=== PATIENT | male | born 1955 | race Caucasian/White ===

== ENCOUNTER 2018-01-16 10:17 | Outpatient (REF) | payer BC, SELFPAY ==
[2018-01-16 22:29] LABS: Anion Gap 11.8 mmol/L (3-11); BUN 15 mg/dL (7-18); CO2 26.2 mmol/L (21.0-32.0); CREATININE 0.89 mg/dL (0.70-1.30); Calcium 8.7 mg/dL (8.5-10.1); Chloride 104 mmol/L (98-107); Cholesterol 176 mg/dL (50-200); Glucose 88 mg/dL (70-100); HDL Cholesterol 54 mg/dL (40-60); LDL CHOLESTEROL 93 mg/dL (<100); Sodium 142 mmol/L (136-145); TSH (W/Ref FT4) 8.34 uIU/mL (0.358-3.74); Triglyceride 201 mg/dL (30-150)
[2018-01-16 23:19] LABS: FREE T4 0.92 ng/dL (0.76-1.46)
== END 2018-01-16 10:37 ==
LOC: NCHCN 10:17
PROVIDERS: PCP Family Medicine; Visit Provider Internal Medicine
DX: I10 Essential (primary) hypertension (principal); M54.5 Low back pain; E03.9 Hypothyroidism, unspecified
CPT/HCPCS: 80048; 80061; 83721; 84439; 84443

== ENCOUNTER 2018-04-10 11:24 | Outpatient (REF) | payer BC, SELFPAY ==
[2018-04-10 22:46] LABS: TSH 10.09 uIU/mL (0.358-3.74)
== END 2018-04-10 11:44 ==
LOC: NCHCN 11:24
PROVIDERS: PCP Family Medicine; Visit Provider Internal Medicine
DX: E03.9 Hypothyroidism, unspecified (principal)
CPT/HCPCS: 84443

== ENCOUNTER → 2023-11-21 00:16 | Outpatient (CLI) | payer MEDICARE, SELFPAY ==
--- NOTE | 2023-11-21 | DI.NM_ITS ---
APPROVED REPORT Exam: Pharmacologic Patient Location: Out-Patient Room/Bed: Stress Nurse: Sruthi Ramsay RN and Moose Blakely RN Ordering Provider:OMER PALAFOX, Contact Number: [phone] BMI: 22.46 Baseline Rhythm: Sinus Rhythm. Comment: Occasional PAC's; Rare PVC. Indications: Other Dyspnea; Cardiac Arrhythmia Unspecified. Medical History Medical History: Back Pain; Chronic Pain; Hyperlipidemia; Hypertension; Hypothyroidism; Former Smoker . Cardiac Medications: Amlodipine; Aspirin; Cyclobenzaprine; Hydrocodone with APAP; Levothyroxine; Emma nopril; Omeprazole; Simvastatin; Tamsulosin; Finasteride. Allergies: Penicillins; Sulfa Drugs. Cardiac Risk Factors: Hyperlipidemia; Hypertension; Former Smoker. Previous Cardiac Procedures: None. Pretest Chest Pain Characteristics: None. Exercise History: Indeterminate. Physical Disabilities: Pt. wears a knee brace on his right knee. Lung Sounds: Clear bilaterally throughout, anterior and posterior. Heart Sounds: S1 and S2 auscultated. Stress Test Details Test: Exercise stress converted to pharmacologic stress due to failure to obtain a diagnostic stress test. Reason for pharmacologic stress test: changed from exercise stress test due to inability to reach t arget heart rate. Nuclear Acquisition: Rest Tc-99m/Stress Tc-99m 1 day Rest Isotope: Tc-99m Sestamibi. Dose: 10.6 Date: 11/21/2023 Injection Time: 0810 Stress Isotope: Tc-99m Sestamibi. Dose: 31.8 Date: 11/21/2023 Injection Time: 0940 HR Resting HR Supine: 69 bpm Max Heart Rate (APMHR): 150 bpm Resting HR Standin bpm Target HR (85% APMHR): 128 bpm Max HR Achieved: 110 bpm % of APMHR: 73 Recovery HR: 74 bpm BP Resting BP Supine: 178/100 mmHg Resting BP Standin/102 mmHg Max BP: 178/100 mmHg Recovery BP: 156/98 mmHg ECG Resting ECG: Sinus Rhythm. Ectopy: Occasional PAC's; Rare PVC. Stress ECG: Sinus Tachycardia. ST Change: Nondiagnostic low heart rate. Arrhythmia: Occasional PAC's; Frequent PVC's. Recovery ECG: Sinus Rhythm. Recovery ST Change: Nondiagnostic low heart rate. Recovery Arrhythmia: Occasional PAC's; Frequent PVC's. Clinical Stress Symptoms: Dyspnea; General Fatigue. Exercise duration: 09 min20 sec Highest Stage Reached: Stage 2: 2.5 mph at 12% grade. Exercise capacity: 7.05 METs Angina Score: None Peña Treadmill Score: 8.6 Rate Pressure Product: 01083 Stress ECG Conclusion 1. Resting electrocardiogram showed voltage for left ventricular hypertrophy, minor ST-T abnormalitie s 2. Patient underwent testing using an combination of treadmill exercise and pharmacologic stress with regadenoson 3. Peak heart rate achieved was 73% of maximal for age 4. The electrocardiographic portion of the test was nondiagnostic 5. Atrial and ventricular ectopic beats were noted 6. See MPI report Peña Treadmill Score is 8.6 which is Low risk. Stress Test Summary STAGE Time (mins) Speed (mph) Grade (%) HR BP SpO2 SYMPTOMS METS Supine 69 178/100 95 Standing 67 168/102 95 1 3 1.7 10 94 170/100 91 Pt. complaining of moderate SOB. 4.5 2 6 2.5 12 108 94 Pt. complaining of moderate SOB; decision made to switch to transitional t est at this time. 7 1 min post Lexiscan injection 88 152/90 95 Pt. complaining of mild dizziness and nausea. 3 min post Lexiscan injection 77 160/102 95 Pt. still complaining of mild dizziness, but aneudy es nausea. 6 min post Lexiscan injection 74 156/98 98 Pt. states that all symptoms have resolved. Pt. was conversing pleasantly with nursing staff upon leaving the Stress Lab to head to Diagnostic Im aging. Pt. left ambulatory in no apparent distress. MPI Conclusion Myocardial perfusion is normal. There is no ischemia or evidence of prior infarction Ejection fraction is 61% with normal wall motion Radiologist Interpretation Radiologist agrees with Customer Service Attendant's Interpretation.
[2023-11-21] MEDS: Regadenoson 0.4 MG/5 ML SYR IVP (09:39)
== END ==
PROVIDERS: PCP Family Medicine; Visit Provider Family Medicine
DX: R06.09 Other forms of dyspnea (principal); I49.9 Cardiac arrhythmia, unspecified
CPT/HCPCS: 78452; 93016; 93018; 93017; J2785